=== PATIENT | female | born 1940 | race Caucasian/White ===

== ENCOUNTER 2017-02-04 00:10 | Emergency (ER) | payer MEDICARE ==
[2017-02-04] MEDS ORDERED: Diltiazem IV* 5 MG/ML 5 ML VIAL (for loading dose/IV Push) (25 MG) IV SLOW PU ONE (00:32)
--- NOTE | 2017-02-04 00:56 | ED ---
Robert Ibanez Rebecca, scribed for Juan C Yanes MD on 02/04/17 at 0035 . Palpitations / Dysrhythmia - HPI Summary HPI Summary: Pt is a 76 y/o F who presents to ED c/o palpitations. Sx began at approximately 2230 tonight upon taking her regular night medications. Palpitations have been constant since onset and are characterized as fluttering. Reports taking 30 mg Deltiazem INTERNAL CONTROLS CONSULTANT at 2350. Sx aggravated by nothing. Additionally c/o elevated BP and HR. Pt called Dr. Ring who advised that she be evaluated by [facility]. PMHx A Fib with last episode 1 month ago. - History of Current Complaint Chief Complaint: EDDysrhythmPalp Time Seen by Provider: 02/04/17 00:28 Hx Obtained From: Patient Onset/Duration: Still Present Timing: Constant Character: Fluttering Aggravating: Nothing - Allergy/Home Medications Allergies/Adverse Reactions: Allergies Allergy/AdvReac Type Severity Reaction Status Date / Time Sulfa Drugs Allergy Severe Rash Verified 02/04/17 00:11 Codeine Allergy Mild Abdominal Verified 02/04/17 00:11 Pain Penicillins Allergy Mild Rash Verified 02/04/17 00:11 ANCHOVIES Allergy Rash And Uncoded 02/04/17 00:11 Itching PMH/Surg Hx/FS Hx/Imm Hx Endocrine/Hematology History: Reports: Hx Thyroid Disease - RAFAL'S , NO MEDS Cardiovascular History: Reports: Hx Atrial Fibrillation, Hx Hypertension Comment Only: Other Cardiovascular Problems/Disorders - RAYNAUD'S DISEASE. PREVIOUS EPISODE OF PALPITATIONS. GI History: Reports: Hx Gastroesophageal Reflux Disease - Hx OF GERD? NO MEDS; JUST STARTED ON ASA 325, Hx Irritable Bowel - POSSIBLE, NOT DIAGNOSED, Other GI Disorders - CONSTIPATION Musculoskeletal History: Reports: Hx Arthritis - HANDS, Hx Tendonitis - HANDS Sensory History: Reports: Hx Cataracts - BILATERAL, Hx Contacts or Glasses - GLASSES Denies: Hx Hearing Aid Opthamlomology History: Reports: Hx Cataracts - BILATERAL, Hx Contacts or Glasses - GLASSES Neurological History: Reports: Hx Headaches, Hx Migraine - Hx OF, USUALLY VISUABLE DISTURBANCE, Other Neuro Impairments/Disorders - NAUSEA WITH MIGRAINES Psychiatric History: Reports: Hx Anxiety - Hx OF, NO MEDS - Cancer History Hx Chemotherapy: No Hx Radiation Therapy: No - Surgical History Surgery Procedure, Year, and Place: YOUNG CHILD T&A. 1968 'VAGINAL REPAIR' [place]. 1970s [facility]ALL[facility] [place] Hx Anesthesia Reactions: No Infectious Disease History: No Infectious Disease History: Denies: Traveled Outside the [place] in Last 30 Days - Family History Known Family History: Positive: Other - Cataract - Social History Alcohol Use: None Substance Use Type: Reports: None Smoking Status (MU): Former Smoker Amount Used/How Often: PACK A DAY Length of Time of Smoking/Using Tobacco: 30 YRS Have You Smoked in the Last Year: No Review of Systems Positive: Other - Elevated BP Positive: Palpitations, Other - Elevated HR All Other Systems Reviewed And Are Negative: Yes Physical Exam Triage Information Reviewed: Yes Vital Signs On Initial Exam: Initial Vitals Temp Pulse Resp BP Pulse Ox 97.5 F 91 20 153/95 98 02/04/17 00:12 02/04/17 00:12 02/04/17 00:12 02/04/17 00:12 02/04/17 00:12 Vital Signs Reviewed: Yes Appearance: Positive: Well-Appearing, No Pain Distress Skin: Positive: Warm Head/Face: Positive: Normal Head/Face Inspection Eyes: Positive: VINCE ENT: Positive: Hearing grossly normal Neck: Positive: Supple Respiratory/Lung Sounds: Positive: Clear to Auscultation, Breath Sounds Present Cardiovascular: Positive: IRR, Tachycardia Abdomen Description: Positive: Nontender, Soft Bowel Sounds: Positive: Present Musculoskeletal: Positive: Strength/ROM Intact Neurological: Positive: Alert, Oriented to Person Place, Time Psychiatric: Positive: Affect/Mood Appropriate Diagnostics - Vital Signs Vital Signs Temp Pulse Resp BP Pulse Ox 02/04/17 00:12 97.5 F 91 20 153/95 98 - Laboratory Result Diagrams: 02/04/17 00:50 02/04/17 00:50 Lab Statement: Any lab studies that have been ordered have been reviewed, and results considered in the medical decision making process. - Radiology CXR Xray Interpretation: No Acute Changes Radiology Interpretation Completed By: ED Physician - EKG 0020 Cardiac Rate: Tachycardia - 103 bpm EKG Rhythm: Atrial Fibrillation EKG Interpretation: No STEMI Re-Evaluation - Re-Evaluation First Eval Re-Evaluation Time: 02:32 Change: Improved Comment: Pt reports she is feeling significantly better. Discussed D/C plan. pt slowed spontaneously, remaind afib mvr, will d/c Course/Dx - Course Assessment/Plan: Pt is a 76 y/o F who presents to ED c/o palpitations characterized as fluttering that began at 2230 upon taking her night medications. Reports taking 30 mg Deltiazem INTERNAL CONTROLS CONSULTANT at 2350. Additionally c/o elevated BP and HR. Pt called Dr. Ring who advised that she be evaluated by [facility]. PMHx A Fib with last episode 1 month ago. EKG reveals a fib. CXR reveals no acute findings. Pt will be D/C to home with Dx of palpitations. She understands and agrees. - Diagnoses Provider Diagnoses: Palpitations Discharge - Discharge Plan Condition: Improved Disposition: HOME Patient Education Materials: Palpitations (ED) Referrals: Db Landaverde MD [Primary Care Provider] - 3 Days The documentation as recorded by the Robert dozier Rebecca accurately reflects the service I personally performed and the decisions made by me, Juan C Yanes MD.
[2017-02-04 00:58] LABS: Hematocrit 42 % (35-47); Hemoglobin 13.7 g/dl (12.0-16.0); Mean Corpuscular HGB Conc 33 g/dl (31-36); Mean Corpuscular Hemoglobin 30 pg (27-31); Mean Corpuscular Volume 92 fL (80-97); Mean Platelet Volume 8 um3 (7.4-10.4); Red Blood Count 4.49 10^6/ul (4.0-5.4); Red Cell Distribution Width 15 % (10.5-15); White Blood Count 6.4 10^3/ul (3.5-10.8)
[2017-02-04 01:14] LABS: Albumin 4.2 g/dL (3.2-5.2); BUN/Creatinine Ratio 22.1 (8-20); Calcium 9.6 mg/dL (8.6-10.3); EGFR African American 108.8 (>60); EGFR Non-African American 84.6 (>60); Magnesium 2.2 mg/dL (1.9-2.7); Potassium 3.5 mmol/L (3.5-5.0); Total Bilirubin 0.4 mg/dL (0.2-1.0); Total Protein 7.2 g/dL (6.4-8.9)
[2017-02-04 02:44] VITALS: BP 115/74
--- NOTE | 2017-02-04 07:35 | RAD ---
HISTORY: Palpitation COMPARISONS: April 20, 2014 VIEWS: 2: Frontal dual-energy and lateral views of the chest. FINDINGS: CARDIOMEDIASTINAL SILHOUETTE: The aorta is tortuous. The cardiomediastinal silhouette is otherwise unremarkable. DAVY: The davy are normal. PLEURA: The costophrenic angles are sharp. No pleural abnormalities are noted. LUNG PARENCHYMA: There is hyperinflation with flattening of the diaphragm and expansion of the AP diameter of the chest. ABDOMEN: The upper abdomen is clear. There is no subphrenic gas. BONES AND SOFT TISSUES: Degenerative changes are noted OTHER: None. IMPRESSION: HYPERINFLATION, CONSISTENT WITH COPD. NO ACTIVE CARDIOPULMONARY DISEASE.
== END 2017-02-04 02:52 | disposition home or self-care (01) ==
LOC: ED 00:10
DX: R00.2 Palpitations (principal); Z87.891 Personal history of nicotine dependence; I10 Essential (primary) hypertension
CPT/HCPCS: 36415; 71020; 80053; 83605; 83735; 84484; 85025; 93005; 99283

== ENCOUNTER 2017-03-08 02:52 | Observation (INO) | payer MEDICARE ==
[2017-03-08] MEDS ORDERED: NS 0.9% 1000 ML* 1,000 ML IV ONE (03:27)
[2017-03-08] MEDS ORDERED: Diltiazem IV VIAL* 125 MG in D5W 100 ML BAG* 100 ML IV ONE (03:28)
[2017-03-08] MEDS ORDERED: Diltiazem IV* 5 MG/ML 5 ML VIAL (for loading dose/IV Push) (25 MG) IV SLOW PU ONE (03:28)
[2017-03-08] MEDS ORDERED: Diltiazem DRIP* 100 MG/100 ML ADDV.BAG IVPB ONE ×2 (03:48→05:00)
[2017-03-08 04:06] LABS: Hematocrit 43 % (35-47); Hemoglobin 14.3 g/dl (12.0-16.0); Mean Corpuscular HGB Conc 34 g/dl (31-36); Mean Corpuscular Hemoglobin 31 pg (27-31); Mean Corpuscular Volume 93 fL (80-97); Mean Platelet Volume 8 um3 (7.4-10.4); Red Blood Count 4.59 10^6/ul (4.0-5.4); Red Cell Distribution Width 16 % (10.5-15); White Blood Count 6.1 10^3/ul (3.5-10.8)
[2017-03-08 04:16] LABS: Albumin 4.2 g/dL (3.2-5.2); BUN/Creatinine Ratio 18.6 (8-20); Calcium 9.4 mg/dL (8.6-10.3); EGFR African American 105.2 (>60); EGFR Non-African American 81.8 (>60); Globulin 2.8 g/dL (2-4); Magnesium 2.2 mg/dL (1.9-2.7); Potassium 3.8 mmol/L (3.5-5.0); Total Bilirubin 0.4 mg/dL (0.2-1.0)
[2017-03-08] MEDS ORDERED: Potassium Chlor TAB* 20 MEQ TAB.ER PO ONE (04:34)
[2017-03-08] MEDS ORDERED: Potassium Chloride LIQUID* 20 MEQ PACKET PO ONE (04:44)
[2017-03-08 05:35] LABS: TSH (Thyroid Stimulating Horm) 3.54 mcIU/mL (0.34-5.60)
[2017-03-08] MEDS ORDERED: Acetaminophen TAB* 325 MG PO PRN (06:39)
[2017-03-08] MEDS ORDERED: Al Hydrox/Mg Hydrox/Simet LIQ* 30 ML UDC PO PRN (06:39)
[2017-03-08] MEDS ORDERED: Ondansetron INJ* 2 MG/ML VIAL IV PRN (06:39)
--- NOTE | 2017-03-08 06:43 | ED ---
I, Oh,Soohjony, scribed for Evangelista Pardo MD on 03/08/17 at 0324 . Palpitations / Dysrhythmia - HPI Summary HPI Summary: This 76 y/o female presents to ED for fluttering/racing palpitation since 0030 AM. Negative CP or SOB. Pt took Diltiazem 30 mg at 0130 AM. PMHx includes HTN, which is controlled by Verapamil, Ant's, and known afib. Pt was last electrically cardioverted by Dr. Wolf a month ago. She states that she prefers electrical cardioversion rather than chemical cardioversion due to her sensitivity to meds. Pt is currently on Xarelto, but not on any water pills. Pt is a former smoker. Primary care involves Dr. Keyes. - History of Current Complaint Chief Complaint: EDDysrhythmPalp Time Seen by Provider: 03/08/17 03:08 Hx Obtained From: Patient, Medical Records Onset/Duration: Sudden Onset, Still Present Character: Fast, Fluttering Aggravating: Nothing Alleviating: Medication - Diltiazem - Allergy/Home Medications Allergies/Adverse Reactions: Allergies Allergy/AdvReac Type Severity Reaction Status Date / Time Sulfa Drugs Allergy Severe Rash Verified 02/04/17 00:11 Codeine Allergy Mild Abdominal Verified 02/04/17 00:11 Pain Penicillins Allergy Mild Rash Verified 02/04/17 00:11 ANCHOVIES Allergy Rash And Uncoded 02/04/17 00:11 Itching PMH/Surg Hx/FS Hx/Imm Hx Endocrine/Hematology History: Reports: Hx Thyroid Disease - ANT'S , NO MEDS Cardiovascular History: Reports: Hx Atrial Fibrillation, Hx Hypertension Comment Only: Other Cardiovascular Problems/Disorders - RAYNAUD'S DISEASE. PREVIOUS EPISODE OF PALPITATIONS. GI History: Reports: Hx Gastroesophageal Reflux Disease - Hx OF GERD? NO MEDS; JUST STARTED ON ASA 325, Hx Irritable Bowel - POSSIBLE, NOT DIAGNOSED, Other GI Disorders - CONSTIPATION Musculoskeletal History: Reports: Hx Arthritis - HANDS, Hx Tendonitis - HANDS Sensory History: Reports: Hx Cataracts - BILATERAL, Hx Contacts or Glasses - GLASSES Denies: Hx Hearing Aid Opthamlomology History: Reports: Hx Cataracts - BILATERAL, Hx Contacts or Glasses - GLASSES Neurological History: Reports: Hx Headaches, Hx Migraine - Hx OF, USUALLY VISUABLE DISTURBANCE, Other Neuro Impairments/Disorders - NAUSEA WITH MIGRAINES Psychiatric History: Reports: Hx Anxiety - Hx OF, NO MEDS - Cancer History Hx Chemotherapy: No Hx Radiation Therapy: No - Surgical History Surgery Procedure, Year, and Place: YOUNG CHILD T&A. 1968 'VAGINAL REPAIR' [place]. [facility] [place] Hx Anesthesia Reactions: No Infectious Disease History: No Infectious Disease History: Denies: Traveled Outside the [place] in Last 30 Days - Family History Known Family History: Positive: Other - Cataract - Social History Alcohol Use: None Substance Use Type: Reports: None Smoking Status (MU): Former Smoker Amount Used/How Often: PACK A DAY Length of Time of Smoking/Using Tobacco: 30 YRS Have You Smoked in the Last Year: No Review of Systems Negative: Fever Positive: Palpitations - fluttering/racing. Negative: Chest Pain Negative: Shortness Of Breath All Other Systems Reviewed And Are Negative: Yes Physical Exam - Summary Physical Exam Summary: The patient is well-nourished in no acute distress and in no acute pain. The skin is warm and dry and skin color reflects adequate perfusion. HEENT: The head is normocephalic and atraumatic. The pupils are equal and reactive. The conjunctivae are clear and without drainage. Nares are patent and without drainage. Mouth reveals moist mucous membranes and the throat is without erythema and exudate. The external ears are intact. The ear canals are patent and without drainage. The tympanic membranes are intact. Neck is supple with full range of motion and non-tender. There are no carotid bruits. There is no neck vein distension. Respiratory: Chest is non-tender. Lungs are clear to auscultation and breath sounds are symmetrical and equal. Cardiovascular: Hear is irregular rate and rhythm. Heart rates are variably noted in 80s and 110s throughout the initial evaluation. There is no murmur or rub auscultated. There is no peripheral edema and pulses are symmetrical and equal. Abdomen: The abdomen is soft and non-tender. There are normal bowel sounds heard in all four quadrants and there is no organomegaly palpated. Musculoskeletal: There is no back pain noted. Extremities are non-tender with full range of motion. There is good capillary refill. There is no peripheral edema or calf tenderness elicited. Neurological: Patient is alert and oriented to person, place and time. The patient has symmetrical motor strength in all four extremities. Cranial nerves are grossly intact. Deep tendon reflexes are symmetrical and equal in all four extremities. Psychiatric: The patient has an appropriate affect and does not exhibit any anxiety or depression. Triage Information Reviewed: Yes Vital Signs On Initial Exam: Initial Vitals Temp Pulse Resp BP Pulse Ox 97.2 F 86 16 131/88 98 03/08/17 02:55 03/08/17 02:55 03/08/17 02:55 03/08/17 02:55 03/08/17 02:55 Vital Signs Reviewed: Yes Diagnostics - Vital Signs Vital Signs Temp Pulse Resp BP Pulse Ox 03/08/17 03:08 97.2 F 86 16 131/88 98 03/08/17 02:55 97.2 F 86 16 131/88 98 - Laboratory Lab Results: Lab Results 03/08/17 03/08/17 03/08/17 Range/Units 03:43 03:43 03:43 WBC 6.1 (3.5-10.8) 10^3/ul RBC 4.59 (4.0-5.4) 10^6/ul Hgb 14.3 (12.0-16.0) g/dl Hct 43 (35-47) % MCV 93 (80-97) fL MCH 31 (27-31) pg MCHC 34 (31-36) g/dl RDW 16 H (10.5-15) % Plt Count 168 (150-450) 10^3/ul MPV 8 (7.4-10.4) um3 Neut % (Auto) 71.9 (38-83) % Lymph % (Auto) 16.4 L (25-47) % [place] % (Auto) 7.8 (1-9) % Eos % (Auto) 2.6 (0-6) % Baso % (Auto) 1.3 (0-2) % Absolute Neuts (auto) 4.4 (1.5-7.7) 10^3/ul Absolute Lymphs (auto) 1.0 (1.0-4.8) 10^3/ul Absolute Monos (auto) 0.5 (0-0.8) 10^3/ul Absolute Eos (auto) 0.2 (0-0.6) 10^3/ul Absolute Basos (auto) 0.1 (0-0.2) 10^3/ul Absolute Nucleated RBC 0 10^3/ul Nucleated RBC % 0.1 Sodium 141 (133-145) mmol/L Potassium 3.8 (3.5-5.0) mmol/L Chloride 106 (101-111) mmol/L Carbon Dioxide 28 (22-32) mmol/L Anion Gap 7 (2-11) mmol/L BUN 13 (6-24) mg/dL Creatinine 0.70 (0.51-0.95) mg/dL Est GFR ( Amer) 105.2 (>60) Est GFR (Non-Af Amer) 81.8 (>60) BUN/Creatinine Ratio 18.6 (8-20) Glucose 106 H (70-100) mg/dL Lactic Acid 2.1 H* (0.5-2.0) mmol/L Calcium 9.4 (8.6-10.3) mg/dL Magnesium 2.2 (1.9-2.7) mg/dL Total Bilirubin 0.40 (0.2-1.0) mg/dL AST 12 L (13-39) U/L ALT 8 (7-52) U/L Alkaline Phosphatase 90 (34-104) U/L Troponin I 0.00 (<0.04) ng/mL Total Protein 7.0 (6.4-8.9) g/dL Albumin 4.2 (3.2-5.2) g/dL Globulin 2.8 (2-4) g/dL Albumin/Globulin Ratio 1.5 (1-3) TSH 3.54 (0.34-5.60) mcIU/mL Result Diagrams: 03/08/17 03:43 03/08/17 03:43 Lab Statement: Any lab studies that have been ordered have been reviewed, and results considered in the medical decision making process. - EKG 0307 EKG Rhythm: Atrial Fibrillation - at 93 bpm Re-Evaluation - Re-Evaluation First Eval Re-Evaluation Time: 06:15 Comment: in room to update pt on high wire artist consult. Plan of care involving possible admission is discussed. Course/Dx - Course Assessment/Plan: This 76 y/o female presents to ED for acute on recurrent afib since 0030 AM. Upon examination pt is noted with variable heart rate in 80s and 110s. EKG is noted with afib. Pt took Diltiazem REIMBURSEMENT REPRESENTATIVE without much relief. Dr. Godinez, high wire artist division operations specialist, recommends hospital admission for observation and hospital workup. Also recommends cardioversion by Dr. Wylie in the morning. Hospitalist division operations specialist, Dr. Fortune, is consulted, who is agreeable to admission of patient. - Diagnoses Differential Diagnosis/HQI/PQRI: Positive: Other - atrial fibrillation, hyperkalemia, dehydration Provider Diagnoses: Atrial fibrillation with rapid ventricular response, Dehydration - Physician Notifications Discussed Care Of Patient With: Bogdan Godinez Time Discussed With Above Provider: 06:13 Instructed by Provider To: Admit As Inpatient Discharge - Discharge Plan Condition: Stable Disposition: ADMITTED TO [facility] Referrals: Db Landaverde MD [Primary Care Provider] - The documentation as recorded by the David dozier Soohyun accurately reflects the service I personally performed and the decisions made by me, Evangelista Pardo MD.
[2017-03-08] MEDS ORDERED: NS 0.9% 1000 ML* 1,000 ML IV SCH (06:45)
[2017-03-08 09:33] LABS: HDL Cholesterol 41.7 mg/dL
--- NOTE | 2017-03-08 09:41 | HP ---
CC: Db Landaverde MD * HISTORY AND PHYSICAL: DATE OF ADMISSION: 03/08/17 TIME OF EVALUATION: 0600. PRIMARY CARE PHYSICIAN: Db Landaverde MD CHIEF COMPLAINT: Palpitations. HISTORY OF PRESENT ILLNESS: This is a 76-year-old female with past medical history of paroxysmal atrial fibrillation, on anticoagulation followed by Dr. Keyes, who states she woke up around 12:30 a.m., feeling with heart fluttering with palpitations. Denies any chest pain or shortness of breath. She states that she was just recently cardioverted about a month ago and has been cardioverted prior to that in the past as well. She did state that she missed her Xarelto dose 2 nights ago but otherwise has been compliant. She denies any recent URI illness. She denies any caffeine intake. She has some mild nausea. No changes in her weight. No lower extremity swelling. She took the potassium chloride liquid in the emergency room and did get some diarrhea after that, otherwise remaining review of systems is negative. In the emergency room, the patient had labs, imaging. She was given diltiazem bolus 60 mg, potassium chloride, [address] L of normal saline. Dr. Godinez from Cardiology was called and recommended admission to the hospitalist service. Hospitalist service admitted for observation for further evaluation. PAST MEDICAL HISTORY: 1. Paroxysmal atrial fibrillation, on anticoagulation followed by Dr. Keyes , history of cardioversion in the past. 2. History of osteoarthritis. MEDICATIONS: 1. Xarelto 20 mg p.o. q.h.s. 2. Verapamil 180 mg p.o. q.h.s. 3. Diltiazem 30 mg daily as needed when she goes into atrial fibrillation. 4. K-Dur 20 mEq p.o. b.i.d. ALLERGIES: SULFA DRUGS, rash; CODEINE, abdominal pain; PENICILLIN, rash; ANCHOVIES, rash and itching. FAMILY HISTORY: Mother at age 91 from rheumatic fever. Father at age 88 from a stroke. SOCIAL HISTORY: She lives with her son, Dusty. She quit smoking about 10 to 11 years ago. At that time, she smoked a pack per day for 30 years. No alcohol use or illicit drug use. Her healthcare proxy is her son, Ace Leonard, and then her son, Dusty Copeland, and her daughter, Isabel Kim. Code status: Full code. REVIEW OF SYSTEMS: A 14-point review of systems mentioned, pertinent positives and negatives as mentioned in the HPI, otherwise negative. PHYSICAL EXAMINATION GENERAL: In no acute distress, resting comfortably with her son at the bedside. VITAL SIGNS: Temp 97.2, pulse rate 78, respiratory rate 20, oxygen saturation 97 % on room air, blood pressure 104/69. HEENT: Head, normocephalic. Pupils are equal and reactive, anicteric. Oropharynx: Mucous membranes are moist. No erythema, no exudates. NECK: Supple. No lymphadenopathy. RESPIRATORY: Diminished breath sounds. No wheezes, rhonchi, or rales. CARDIAC: Irregularly irregular rate and rhythm. Soft systolic murmur heard throughout. ABDOMEN: Soft, nontender, nondistended. EXTREMITIES: No clubbing, cyanosis or edema. NEUROLOGIC: Alert and oriented x3. No focal neurologic deficits. DIAGNOSTIC STUDIES/LABORATORY DATA: White count 6.1, hemoglobin 14.3, hematocrit 43, platelets 168. Sodium 141, potassium 3.8, chloride 106, bicarb 28, BUN 13, creatinine 0.7. Lactic acid 2.1. Troponin of 0. TSH 3.54. RADIOGRAPHIC DATA: Atrial fibrillation with a rate of 93. ASSESSMENT: This is a 76-year-old female with past medical history of paroxysmal atrial fibrillation, who presents to the emergency room with palpitations, found to be in atrial fibrillation. 1. Atrial fibrillation: Assessment: Cardiology was called. They recommended admission for cardioversion. Plan: We will keep patient n.p.o. We will repeat a second troponin. We will check her coags. She did miss a dose 2 nights ago of her Xarelto. She takes it in the evening and she did take it last night. The patient is concerned about recurrent cardioversion events. I discussed that Cardiology can follow up with her regarding potentially starting a different antiarrhythmic agent, otherwise the patient to follow up with cardiology for cardioversion. I will place her on some gentle IV fluids as well. 2. Fluids, electrolytes, nutrition: As mentioned, the patient is n.p.o., on IV fluids. 3. Deep venous thrombosis prophylaxis: Patient scores high risk. She is on Xarelto. 4. Code status: Patient is full code. PATIENT TIME: Greater than 45 minutes spent doing the history and physical, more than half the time spent in direct patient contact. [id number]/[facility] #: [id number] CHARMAINE
[2017-03-08] MEDS ORDERED: fentaNYL* 50 MCG/ML 2 ML VIAL (100 MCG VIAL) ONE (10:04)
[2017-03-08] MEDS ORDERED: Midazolam* 1 MG/ML 5 ML VIAL (5 MG) ONE (10:04)
[2017-03-08] MEDS ORDERED: Naloxone* 0.4 MG/ML 1 ML VIAL ONE (10:05)
[2017-03-08] MEDS ORDERED: Flumazenil* 0.1 MG/ML 5 ML MDV ONE (10:05)
--- NOTE | 2017-03-08 15:34 | PRO ---
CC: Dr. eKyes; Dr. Db Landaverde PROCEDURE NOTE: DATE OF PROCEDURE: 03/08/17 REASON FOR PROCEDURE: Atrial fibrillation. INDICATIONS: This is a very pleasant 76-year-old woman with history of hypertension, paroxysmal atr ial fibrillation. She was in bed about 12:30 last night and noted her heart was irregular. She had some lightheadedness, which was typical of her atrial fibrillation. She came to the emergency room and was found to be in AFib with rapid ventricular response. She was given IV diltiazem with some improvement in her symptoms and is now here for cardioversion. Informed consent was obtained. The patient is in a fasting state. The risks including but not limited to stroke, arrhythmia, aspiratio n were discussed and the patient understood and agreed to proceed. DESCRIPTION OF PROCEDURE: Patient was premedicated with 4 mg of Versed and 25 mcg of fentanyl. A s helen synchronized biphasic shock of 120 joules was applied with successful conversion to sinus jesus ycardia in the 50s. The results were discussed with her son, Aec, at the bedside after the proce dure. PLAN: The plans is as follows: 1. She is to continue observation for recovery from conscious sedation. 2. I asked her to replace her potassium. 3. She is to have echo to reassess her LV function and valvular function. 4. She is to follow up with Dr. Keyes concerning further interventions, potentially including a ntiarrhythmic therapy, and a referral for EP consultation as well as further evaluation for potentia l etiology of her dyspnea and AFib including overnight oximetry, and stress testing. [id number]/[facility] #: [id number]
[2017-03-08 15:38] VITALS: BP 101/60
--- NOTE | 2017-03-08 15:43 | ECHO ---
Patient: GUERRERO SHELLEY [facility] Rec#: [id number] : 1940 Date: 03/08/2017 Age: 76y Height: 160 cm / 63.0 in Weight: 64.4 kg / 141.9 lbs Sex: F BSA: 1.67 Room#: [facility] Admit Date#: 03/08/2017 Type: Inpatient Referring: Sourav Wylie MD Reading: Sourav Wylie MD Clinical Program Director: Naomi Rdz RN RDCS CC: David Keyes MD CC: Db Landaverde MD Transthoracic Echocardiogram Indication: Atrial fibrillation S/P electrical cardioversion BP: 90/58 HR: 51 Rhythm: Bradycardia Findings History: Atrial fibrillation, HTN, Ant's disease, former smoker Technical Comments: The study quality is fair. Completed at 1200. Left Ventricle: The left ventricular chamber size is decreased. Mild to moderate concentric left ventricular hypertrophy is observed.sigmoid septum. Global left ventricular wall motion and contractility are within normal limits. There is normal left ventricular systolic function. The estimated ejection fraction is 60-65%. Abnormal left ventricular diastolic filling is observed, consistent with impaired relaxation. Left Atrium: The left atrium is mildly dilated. Right Ventricle: The right ventricular chamber size and systolic function are within normal limits. The right ventricle wall thickness is mildly increased.6 mm. Right Atrium: The right atrium is mildly dilated. There is evidence of an atrial septal aneurysm. Aortic Valve: The aortic valve is trileaflet. The aortic valve leaflets are mildly thickened. There is no evidence of aortic regurgitation. There is no evidence of aortic stenosis. Mitral Valve: The mitral valve leaflets are mildly thickened. There is a trace of mitral regurgitation. There is no evidence of mitral stenosis. Tricuspid Valve: The tricuspid valve leaflets are normal. There is trace to mild tricuspid regurgitation. No pulmonary hypertension is noted. There is no tricuspid stenosis. Pulmonic Valve: The pulmonic valve appears normal. There is a trace pulmonic regurgitation. There is no pulmonic stenosis. Pericardium: There is no significant pericardial effusion. A pericardial fat pad is visualized. Aorta: There is mild dilatation of the ascending aorta. There is no dilatation of the aortic arch. There is no dilation of the aortic root. Pulmonary Artery: The main pulmonary artery appears normal. Venous: The inferior vena cava appears normal in size. There is less than 50% respiratory change in the inferior vena cava dimension. Conclusions Mild to moderate concentric left ventricular hypertrophy is observed. The estimated ejection fraction is 60-65%. There is normal left ventricular systolic function. The left atrium is mildly dilated. The right ventricle wall thickness is mildly increased. The right atrium is mildly dilated. The aortic valve leaflets are mildly thickened. There is a trace of mitral regurgitation. There is trace to mild tricuspid regurgitation. There is mild dilatation of the ascending aorta. Abnormal left ventricular diastolic filling is observed, consistent with impaired relaxation. Compared to 09/2015, The LVH and RVH are newly reported. The MR has decreased from mild then to trace now. Measurements Name Value Normal Range RVDdMajor (2D) 2.9 cm (2.2 - 4.4) RAd ISD 4CH 5.1 cm (3.4 - 4.9) RA (A4C)W 3.2 cm (2.9 - 4.6) IVSd (2D) 1.3 cm (0.6 - 1) LVPWd (2D) 1.3 cm (0.6 - 1) LVIDd (2D) 3.4 cm (3.6 - 5.4) LVIDs (2D) 2.6 cm - LV FS (2D) 24 % (25 - 45) Aortic Annulus 1.9 cm (1.4 - 2.6) Ao root diameter (2D) 3 cm (2.1 - 3.5) Ascending Ao 3.5 cm (2.1 - 3.4) Aortic arch 2.6 cm (1.8 - 3.4) LA dimension (AP) 2D 2.7 cm (2.3 - 3.8) LAd ISD 4CH 5.5 cm (2.9 - 5.3) LA ISD 4CH W 4.4 cm (2.5 - 4.5) Name Value Normal Range LA ESV SP 4CH (A/L) 55 ml - LA ESV SP 2CH (A/L) 31 ml - LA ESV BP (A/L) 45 ml - LA ESV BP (A/L) index 27 ml/m2 - LA ESV SP 4CH (MOD) 52 ml - LA ESV SP 2CH (MOD) 30 ml - Name Value Normal Range MV E-wave Vmax 0.54 m/sec - MV deceleration time 310 msec - MV A-wave Vmax 0.77 m/sec - MV E:A ratio 0.7 ratio - LV septal e' Vmax 0.07 m/sec - LV lateral e' Vmax 0.09 m/sec - LV E:e' septal ratio 7.7 ratio - LV E:e' lateral ratio 6 ratio - Name Value Normal Range AV Vmax 1.3 m/sec - AV VTI 28.7 cm - AV peak gradient 6 mmHg - AV mean gradient 3 mmHg - LVOT Vmax 1.1 m/sec - LVOT VTI 25.8 cm - LVOT peak gradient 5 mmHg - LVOT mean gradient 3 mmHg - REHAN Vmax 0.51 m/sec - Name Value Normal Range TR Vmax 2.2 m/sec - TR peak gradient 19 mmHg - RAP 8 mmHg - RVSP 27 mmHg - IVC diameter 1.5 cm - Name Value Normal Range PV Vmax 0.71 m/sec -
--- NOTE | 2017-03-08 16:40 | CONS ---
CC: Dr. Keyes; Dr. Landaverde CARDIOLOGY CONSULTATION: DATE OF CONSULT: 03/08/17 PATIENT OF: Dr. Landaverde. CONSULTING PHYSICIAN: Dr. Seda Fortune. REASON FOR EVALUATION: AFib. HISTORY OF PRESENT ILLNESS: This is a very pleasant 76-year-old woman with a history of hypertension and paroxysmal atrial fibrillation dating back to 2013. Her last episode was on February 04. At that time, she was seen by Dr. Wolf and underwent cardioversion to sinus rhythm. The patient was prescribed potassium because her potassium was low normal at 3.5. She said that about 2 weeks ago, she tried to climb 2 flights of steps and had shortness of breath after 1 flight of stairs, which she thought was unusual and she had to rest. She does not usually climb 2 flights of stairs though. She was doing well again until last night. She said that she went to bed about 11 but was tossing and turning , and unable to sleep. About 12:30, she noted that her heart was irregular and she had her typical symptoms of fluttering and mild lightheadedness. No chest pain, no shortness of breath, no syncope or near syncope. Because of those findings, she told her son. She took an extra p.r.n. diltiazem 30 mg but after 2 hours, decided to come to the emergency room. She was found to be in atrial fibrillation with rapid ventricular response and was started on IV diltiazem, some slowing of her heart rate, improvement in her symptoms. She denies any chest pain. No orthopnea, no peripheral edema. No strokes, mini strokes, or bleeding problems. No fevers, chills, sweats. She denies alcohol use. She has had no caffeine since February 04, when she had a cardioversion. PAST MEDICAL HISTORY: Includes paroxysmal atrial fibrillation with cardioversion in 2013 and on 02/04/17. She has a history of hypertension, Ant thyroiditis, hyperlipidemia, possible mitral regurgitation. She also reports that she has a history of snoring and falls asleep in the afternoon. She said that she does not exercise regularly but does some gardening and actually works very vigorously in the garden, sowing things and has no limitations there. She has a history of osteoarthritis. PAST SURGICAL HISTORY: She had a cholecystectomy. MEDICATIONS: As an outpatient include: 1. Verapamil 180 mg at bedtime. 2. Xarelto 20 mg at bedtime. 3. Diltiazem 30 mg p.r.n. As an inpatient, she is on: 1. IV diltiazem. 2. Verapamil 180 mg. 3. Calan SR at bedtime. 4. Xarelto 20 mg a day. 5. Zofran 4 mg IV q. 4. 6. Potassium 20 mEq b.i.d. 7. Maalox 30 cc q. 6 p.r.n. 8. Acetaminophen 650 mg q. 4 p.r.n. ALLERGIES: Include SULFA DRUGS which result in rash; CODEINE, abdominal pain; PENICILLIN, rash; ANCHOVIES, rash. FAMILY HISTORY: Mother at 91 from rheumatic fever. Father at 88 from CVA. She was last year from her , who of cancer. She has a daughter and a son and annelise Dusty. 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 SOCIAL HISTORY: She denies alcohol use. Past tobacco use. PHYSICAL EXAM: She is a well-developed, well-nourished female, in no apparent distress. Blood pressure 133/79, pulse in the 70s and irregular. Atraumatic, normocephalic. Extraocular muscles intact. Sclerae anicteric. Carotids 2+ without bruits. Cardiac Exam: S1, S2. No murmurs, gallops, or rubs. Chest was clear. No CVAT. Abdomen: Bowel sounds present, nontender. No hepatosplenomegaly. Femoral pulses intact with bruits bilaterally. Distal pulses intact. No edema. Motor strength 5/5 bilaterally. Deep tendon reflexes 2/4. Alert and oriented x3. DIAGNOSTIC STUDIES/LAB DATA: Laboratories include relatively unremarkable CBC. BUN of 13, creatinine of 0.7, lactic acid elevated at 2.1. Troponin 0 x2. Cholesterol 238, LDL 171, HDL of 42, triglycerides 125. TSH normal. INR 1.46. EKG from 03/08/17 at 3 a.m. revealed atrial fibrillation with a heart rate in the 90s and diffuse lateral T-wave depressions. These are new compared to February 04 at 11:12 when she was in sinus rhythm. However, on February 04 when she was in AFib, she had similar ST-T changes. IMPRESSION: My impression is that Mrs. Smart has paroxysmal atrial fibrillation and had an episode of exertional shortness of breath recently and on exam, she also has femoral bruits and a history of hyperlipidemia. For the time being, we discussed at length, options for treatment of her paroxysmal atrial fibrillation including rate control with anticoagulation versus an attempted cardioversion versus antiarrhythmic therapy versus referral for EP consultation. After discussing her options, she agrees to proceed with cardioversion but is reluctant to be on any antiarrhythmics at this point in time. Therefore, I would recommend followin. I suggested that she continue to supplement her potassium and try to maintain it over 4. 2. She is to avoid caffeine and alcohol. 3. She is to have a cardioversion. 4. I would consider starting her on statin given the femoral bruits and elevated lipids. 5. She is to have an echo to reassess her LV function and valvular function. 6. I would consider an outpatient stress nuclear at some point given her hyperlipidemia, bruits, dyspnea on exertion, and EKG changes. 7. I also would consider obtaining an overnight pulse oximetry given her history of snoring, AFib and late afternoon sleepiness. Further recommendation will depend on her clinical course. [id number]/[facility] #: [id number] CHARMAINE
[2017-03-08] MEDS ORDERED: Rivaroxaban TAB(*) 20 MG TAB PO SCH (21:00)
[2017-03-08] MEDS ORDERED: Verapamil SR CAP* 180 MG PO SCH (21:00)
--- NOTE | 2017-03-09 06:04 | DS ---
CC: Dr. Landaverde; Dr. Keyes * DISCHARGE SUMMARY: DATE OF ADMISSION: 03/08/17 DATE OF DISCHARGE: 03/08/17 PRIMARY CARE PROVIDER: Dr. Landaverde. CHIEF SCIENTIFIC OFFICER: Dr. Keyes. DISCHARGE DIAGNOSIS: Atrial fibrillation with rapid ventricular rate. SECONDARY DIAGNOSES: 1. Paroxysmal atrial fibrillation. 2. History of osteoarthritis. MEDICATION LIST: 1. Verapamil 100 mg p.o. at bedtime. 2. Rivaroxaban 20 mg p.o. at bedtime. 3. Diltiazem 30 mg p.o. daily p.r.n. for paroxysmal atrial fibrillation. 4. Potassium chloride 20 mEq p.o. b.i.d. HOSPITAL COURSE: Ms. Smart is a 76-year-old lady with the past medical history as stated above, that woke up around midnight with heart fluttering and palpitations. She had been cardioverted about a month ago and also prior to that in the past. The patient was admitted for further evaluation and possible cardioversion. Laboratory test showed a potassium of 3.8 and a normal magnesium. She had a transthoracic echocardiogram that showed ejection fraction of 60% to 65% with [id number] concentric LVH, right ventricular wall thickness is mildly increased. There is trace of mitral regurgitation, [id number] tricuspid regurgitation. The patient underwent cardioversion with Dr. Wylie. She received a single synchronized biphasic shock of 120 joules and she converted back to sinus bradycardia with heart rate in the 50s and 60s. The patient was feeling well enough to go home after the procedure. Dr. Wylie has contacted Dr. Keyes as he feels that the patient would benefit of a stress test, adding a statin to her regimen since her LDL is 171. He also offered an antiarrhythmic but the patient would prefer to discuss this intervention with Dr. Keyes as outpatient. Dr. Wylie also feels that she should be evaluated for obstructive sleep apnea as this may be playing a role on her episodes of atrial fibrillation. The patient states that she had been scheduled a couple of years ago for a sleep study, but the study was canceled and she never rescheduled it. Dr. Keyes can refer her to Dr. Carrillo, so she can have this evaluation done. The patient is medically stable for discharge today. PHYSICAL EXAMINATION: Vital Signs: Temperature 98.3, heart rate is 52, respiratory rate is 18, oxygen saturation 95% on room air, and blood pressure is 101/60. General: The patient is a pleasant elderly lady, lying in bed in no acute distress. CVS: Normal S1 and S2, regular rate and rhythm. Chest: Breath sounds present bilaterally with no added sounds. Extremities: No edema. Neuro: She is alert and oriented x3, able to move all 4 extremities. DIET: Heart-healthy diet, avoid caffeine. ACTIVITY: As tolerated. DISPOSITION: To home. STATUS WHILE IN THE HOSPITAL: Observation. Please keep in mind this is a summarized version of this hospital stay. If you need more information, please feel free to call me at [phone] or please obtain the full medical records. TIME SPENT: Approximately 45 minutes was spent to complete this discharge. [id number]/[facility] #: [id number] CHARMAINE
[2017-03-09] MEDS ORDERED: Potassium Chlor TAB* 20 MEQ TAB.ER PO SCH (09:00)
== END 2017-03-08 16:50 | disposition home or self-care (01) ==
LOC: ED 02:52 → MEDTELE 06:39
PROVIDERS: ADMIT Pediatrics; ATTEND Internal Medicine
DX: I48.0 Paroxysmal atrial fibrillation (principal); I36.1 Nonrheumatic tricuspid (valve) insufficiency; I51.7 Cardiomegaly; I10 Essential (primary) hypertension; Z79.01 Long term (current) use of anticoagulants; Z79.899 Other long term (current) drug therapy; R06.02 Shortness of breath; M19.90 Unspecified osteoarthritis, unspecified site; Z87.891 Personal history of nicotine dependence
CPT/HCPCS: 36415; 80053; 80061; 83605; 83735; 84443; 84484; 85025; 85610; 85730; 92960; 93005; 93306; 96374; 96375; 99156; 99157; 99285; A9270-GY; G0378; J2250; J2310; J3010

== ENCOUNTER 2020-03-31 10:24 | Inpatient (IN) ==
[2020-03-31 11:31] LABS: ABS Basophils 0.1 10^3/ul (0-0.2); ABS Eosinophils 0.1 10^3/ul (0-0.6); ABS Lymphocytes 0.9 10^3/ul (1.0-4.8); ABS Monocytes 0.3 10^3/ul (0-0.8); ABS Neutrophils 3.7 10^3/ul (1.5-7.7); Eosinophil % 1.3 %; Hematocrit 39 % (35-47); Hemoglobin 13.4 g/dL (12.0-16.0); Lymphocyte % 17.7 %; Mean Corpuscular HGB Conc 35 g/dL (31-36); Mean Corpuscular Hemoglobin 32 pg (27-31); Mean Corpuscular Volume 91 fL (80-97); Mean Platelet Volume 7.6 fL (7.4-10.4); Nucleated Red Blood Cells % 0.1; Platelet Count 177 10^3/uL (150-450); Red Blood Count 4.25 10^6 /uL (3.70-4.87); Red Cell Distribution Width 14 % (10-15)
[2020-03-31 11:47] LABS: Albumin 4.1 g/dL (3.2-5.2); Albumin/Globulin Ratio 1.7 (1-3); BUN/Creatinine Ratio 28.2 (8-20); Calcium 9.5 mg/dL (8.6-10.3); EGFR African American 96.6 (>60); EGFR Non-African American 79.8 (>60); Globulin 2.4 g/dL (2-4); Potassium 4.3 mmol/L (3.5-5.0); Total Bilirubin 0.5 mg/dL (0.2-1.0); Total Protein 6.5 g/dL (6.4-8.9)
[2020-03-31] MEDS ORDERED: nitroGLYCERIN DRIP 25,000 MCG/250 ML BTL IV ONE (12:21)
[2020-03-31] MEDS: Heparin 5000 UNITS/ML 1 mL VIAL SUBCUT SCH (21:04)
[2020-04-01 01:14] LABS: Urine Appearance Cloudy; Urine Bilirubin Negative (Negative); Urine Blood Negative (Negative); Urine Color Yellow; Urine Glucose Negative (Negative); Urine Ketones Negative (Negative); Urine Nitrite Negative (Negative); Urine Protein Negative (Negative); Urine Specific Gravity 1.013 (1.010-1.030); Urine Urobilinogen Negative (Negative)
[2020-04-01 01:21] LABS: Urine Bacteria Absent (Absent); Urine Red Blood Cell 1+(3-5/hpf) (Absent); Urine Squamous Epithelial Cell Present (Absent); Urine White Blood Cell 1+(6-10/hpf) (Absent)
[2020-04-01 05:05] LABS: Albumin 3.8 g/dL (3.2-5.2); Calcium 9.2 mg/dL (8.6-10.3); Potassium 4.3 mmol/L (3.5-5.0); Total Bilirubin 0.5 mg/dL (0.2-1.0)
[2020-04-01 05:11] LABS: Albumin/Globulin Ratio 1.6 (1-3); BUN/Creatinine Ratio 20.3 (8-20); EGFR African American 99.8 (>60); EGFR Non-African American 82.5 (>60); Globulin 2.4 g/dL (2-4); Total Protein 6.2 g/dL (6.4-8.9)
[2020-04-01 05:13] LABS: ABS Basophils 0.1 10^3/ul (0-0.2); ABS Eosinophils 0.1 10^3/ul (0-0.6); ABS Lymphocytes 1.2 10^3/ul (1.0-4.8); ABS Monocytes 0.4 10^3/ul (0-0.8); ABS Neutrophils 3.1 10^3/ul (1.5-7.7); Eosinophil % 2.1 %; Hematocrit 38 % (35-47); Hemoglobin 13.1 g/dL (12.0-16.0); Lymphocyte % 25.8 %; Mean Corpuscular HGB Conc 34 g/dL (31-36); Mean Corpuscular Hemoglobin 31 pg (27-31); Mean Corpuscular Volume 92 fL (80-97); Mean Platelet Volume 7.7 fL (7.4-10.4); Platelet Count 169 10^3/uL (150-450); Red Blood Count 4.19 10^6 /uL (3.70-4.87); Red Cell Distribution Width 14 % (10-15); White Blood Count 4.8 10^3/uL (3.5-10.8)
[2020-04-01] MEDS: Heparin 5000 UNITS/ML 1 mL VIAL SUBCUT SCH (08:31)
[2020-04-01 13:12] LABS: HDL Cholesterol 40.8 mg/dL
[2020-04-02 06:28] LABS: ABS Eosinophils 0.1 10^3/ul (0-0.6); ABS Lymphocytes 1.1 10^3/ul (1.0-4.8); ABS Monocytes 0.4 10^3/ul (0-0.8); ABS Neutrophils 2.6 10^3/ul (1.5-7.7); Eosinophil % 2.7 %; Hematocrit 39 % (35-47); Hemoglobin 13.2 g/dL (12.0-16.0); Lymphocyte % 26.3 %; Mean Corpuscular HGB Conc 33 g/dL (31-36); Mean Corpuscular Hemoglobin 31 pg (27-31); Mean Corpuscular Volume 94 fL (80-97); Mean Platelet Volume 7.8 fL (7.4-10.4); Platelet Count 160 10^3/uL (150-450); Red Cell Distribution Width 14 % (10-15); White Blood Count 4.3 10^3/uL (3.5-10.8)
[2020-04-02 07:03] LABS: Albumin 3.7 g/dL (3.2-5.2); Albumin/Globulin Ratio 1.7 (1-3); BUN/Creatinine Ratio 27.6 (8-20); Calcium 9.3 mg/dL (8.6-10.3); EGFR African American 89.3 (>60); EGFR Non-African American 73.8 (>60); Globulin 2.2 g/dL (2-4); Potassium 4.1 mmol/L (3.5-5.0); Total Bilirubin 0.4 mg/dL (0.2-1.0); Total Protein 5.9 g/dL (6.4-8.9)
[2020-04-02 11:07] LABS: TSH Ultra Thyroid Stim Horm 2.37 mcIU/mL (0.34-5.60)
[2020-04-03 06:37] LABS: ABS Eosinophils 0.1 10^3/ul (0-0.6); ABS Lymphocytes 1.1 10^3/ul (1.0-4.8); ABS Monocytes 0.4 10^3/ul (0-0.8); ABS Neutrophils 2.7 10^3/ul (1.5-7.7); Eosinophil % 2.8 %; Hematocrit 39 % (35-47); Hemoglobin 13.3 g/dL (12.0-16.0); Lymphocyte % 26.1 %; Mean Corpuscular HGB Conc 34 g/dL (31-36); Mean Corpuscular Hemoglobin 31 pg (27-31); Mean Corpuscular Volume 91 fL (80-97); Mean Platelet Volume 7.6 fL (7.4-10.4); Nucleated Red Blood Cells % 0.1; Platelet Count 150 10^3/uL (150-450); Red Blood Count 4.23 10^6 /uL (3.70-4.87); Red Cell Distribution Width 14 % (10-15); White Blood Count 4.3 10^3/uL (3.5-10.8)
[2020-04-03 06:45] LABS: Albumin 3.8 g/dL (3.2-5.2); Calcium 9.5 mg/dL (8.6-10.3); Total Bilirubin 0.4 mg/dL (0.2-1.0)
[2020-04-03 06:51] LABS: Albumin/Globulin Ratio 1.6 (1-3); BUN/Creatinine Ratio 33.3 (8-20); EGFR African American 99.8 (>60); EGFR Non-African American 82.5 (>60); Globulin 2.4 g/dL (2-4); Total Protein 6.2 g/dL (6.4-8.9)
[2020-04-03 08:34] VITALS: BP 149/64
[2020-04-07 22:50] LABS: Urine Collection Duration 24 h; Urine Total Metanephrines 252 mcg/24 h
== END 2020-04-03 11:50 | disposition home or self-care (01) | DRG 305 ==
LOC: ED 10:24 → ICU 15:01 → MEDTELE 04-01 11:26
PROVIDERS: ADMIT Internal Medicine; ATTEND Internal Medicine